=== PATIENT | female | born 1970 | race Caucasian/White ===

== ENCOUNTER → 2016-12-16 | Outpatient (CLI) | payer OTHER ==
[~2016-12-16] MED LIST: BETA0.056 TOPICAL; CLOB-23 TOPICAL; HYDR-3133 PO; TRIAM.1%T TOPICAL
--- NOTE | 2016-12-16 16:54 | RADRPT ---
EXAM DATE/TIME: 12/16/2016 14:46 [facility] COMPARISON: No previous studies available for comparison. INDICATIONS : Hypothyroid. MEDICAL HISTORY : Hypothyroidism. Eczema. SURGICAL HISTORY : section. ENCOUNTER: Initial ACUITY: 2 weeks PAIN SCORE: 0/10 LOCATION: Bilateral neck MEASUREMENTS: RIGHT LOBE: 3.0 x 1.1 x 2.0 cm LEFT LOBE: 3.2 x 0.9 x 1.2 cm FINDINGS: RIGHT LOBE: 5 x 5 x 4 mm predominantly hypoechoic solid nodule in the superior right lobe with in creased vascularity. 5 x 5 x 3 mm predominantly hypoechoic solid nodule in the mid right lobe with in creased vascularity. Homogeneous echotexture of the right thyroid lobe with normal vascularity. LEFT LOBE: 6 x 6 x 3 mm predominantly hyperechoic solid nodule in the superior left thyroid lobe. Homogeneous echotexture of the left thyroid lobe with normal vascularity. ISTHMUS: Hyperechoic solid nodule in the right isthmus measuring 1.6 x 1.4 x 2.7 cm with minimal vascularity. CONCLUSION: 1. Two subcentimeter intermediate pattern (hypoechoic solid) nodules in the right lobe. Generally, FN A is recommended for intermediate pattern nodules greater than 1 cm. 2. Single subcentimeter low suspicion pattern (hyperechoic solid) nodule in the left lobe. Generally, FNA is recommended 4 low suspicion pattern nodules greater than 1.5 cm. 3. Single 1.6 x 1.4 x 2.7 cm low suspicion pattern (hyperechoic solid) nodule in the right isthmus. Consider fine needle aspiration. Denzel Patel MD on December 16, 2016 at 16:42 Board Certified Radiologist. This report was verified electronically.
== END ==
LOC: HRAD 13:57
PROVIDERS: ATTEND Family Medicine
DX: E03.9 Hypothyroidism, unspecified (principal); E04.2 Nontoxic multinodular goiter
CPT/HCPCS: 76536

== ENCOUNTER 2017-03-28 12:57 | Day surgery (SDC) | payer OTHER ==
[~2017-03-28 12:57] MED LIST changes: -BETA0.056 TOPICAL
--- NOTE | 2017-03-28 14:21 | PD.RAD ---
Post US Procedure Prog Note Pre Procedure Diagnosis: (1) Thyroid nodule Post Procedure Diagnosis: (1) Thyroid nodule Procedure Date: Mar 28, 2017 Supervising Radiologist: Sami Chi Proceduralist/Assist: Ayesha Arellano RDMS, Ayesha Ribeiro RDMS Estimated blood loss: none Anesthesia: Local Plan of Activity Patient to Unit: ROPU Patient Condition: Good See PACS Report for procedural detail/treatment Biopsy Imaging Guidance: Ultrasound Side: Right Biopsy Procedure: Thyroid Site: right isthmus nodule. Specimen: Fine Needle Aspirate Plan discharge patient. Sami Chi MD Mar 28, 2017 14:21
--- NOTE | 2017-03-28 14:48 | RADRPT ---
EXAM DATE/TIME: 03/28/2017 13:24 [facility] COMPARISON: No previous studies available for comparison. INDICATIONS : Thyroid nodule, right isthmus. MEDICAL HISTORY : Psoriasis. Hypothyroidism. SURGICAL HISTORY : section. Tubal ligation. ENCOUNTER: Initial ACUITY: 1 day PAIN SCORE: 0/10 LOCATION: Right neck ORGAN: Right thyroid lobe isthmus SPECIMENS: Four fine needle aspirate(s) submitted for pathologic evaluation. DEVICE: 22 gauge needle Post procedure scanning reveals no hematoma or other complication. The possibility does exist that the tissue obtained will be non-diagnostic. If the sample is non-kunal gnostic a repeat biopsy or surgical biopsy may need to be performed. TECHNIQUE: 1. Ultrasound guidance for needle biopsy. 2. Needle biopsy. The risks, benefits and alternatives to the procedure were explained and verbal and written consent w as obtained. The site was prepped in sterile fashion. Full sterile technique was used, including ca p, mask, sterile gloves and gown and a large sterile sheet. Hand hygiene and 2% chlorhexidine and/or betadine/alcohol prep was utilized per protocol for cutaneous antisepsis. The skin and subcutaneous tissues were infiltrated with local anesthetic solution. Sterile gel and sterile probe cover were u tilized for ultrasound guidance. With the patient on the ultrasound table, images were obtained. In the right isthmus there is a homo geneous echogenic solid nodule measuring 1.4 x 0.8 x 1.5 cm. A needle was advanced into the identified target and the number of specimens as above obtained and wilks bmitted for pathologic evaluation. The patient tolerated the procedure well and left the ultrasound suite in stable condition. CONCLUSION: Uncomplicated ultrasound guided needle biopsy of a right isthmus thyroid nodule. Sami Chi MD on March 28, 2017 at 14:46 Board Certified Radiologist. This report was verified electronically.
[2017-03-28] MEDS ORDERED: LIDOCAINE HCL 1% 20 ML VIAL ONE (14:51)
[2017-03-28] MEDS ORDERED: SODIUM BICARBONATE 8.4% INJ 50 ML ONE (14:52)
[2017-04-05] MEDS ORDERED: LEVO25TA4 PO (09:38)
== END 2017-03-28 14:23 | disposition home or self-care (01) ==
LOC: HRAD 12:57 → HRIP 12:58 → HRAD 14:23
PROVIDERS: ATTEND Family Medicine
DX: E04.9 Nontoxic goiter, unspecified (principal); E03.9 Hypothyroidism, unspecified; L40.9 Psoriasis, unspecified
CPT/HCPCS: 10022; 76942; 88172; 88173